=== PATIENT | female | born 1970 | race Native Hawaiian/Other Pacific Islander ===

== ENCOUNTER 2017-09-25 21:43 | Emergency (ER) | payer OTHER ==
[~2017-09-25] VITALS: Ht 160 cm; Wt 95.3 kg
[2017-09-25] MEDS ORDERED: FLUO10CA2 PO (22:07)
[2017-09-25] MEDS ORDERED: CLON1TAB18 PO (22:08)
[2017-09-25] MEDS ORDERED: MIRAPEX0.5 MG PO (22:08)
[2017-09-25] MEDS ORDERED: AMBIEN5 MG PO (22:10)
[2017-09-25] MEDS ORDERED: PROPRANOLOL40 MG PO (22:11)
[2017-09-26 00:50] VITALS: BP 139/87; TEMP 98.2
== END 2017-09-26 00:52 | disposition home or self-care (01) ==
LOC: ED 21:43
DX: M54.2 Cervicalgia (principal); R51 Headache; R42 Dizziness and giddiness; M25.572 Pain in left ankle and joints of left foot; V49.9XXA Car occupant (driver) (passenger) injured in unspecified traffic accident, initial encounter; Y93.89 Activity, other specified; Y92.89 Other specified places as the place of occurrence of the external cause
CPT/HCPCS: 96372; 99283